=== PATIENT | female | born 1990 | race Caucasian/White ===

== ENCOUNTER → 2016-11-02 17:12 | Emergency (ER) | payer OTHER ==
[~2016-11-02 17:12] MED LIST: Tetan/Diph/Pertus SYR(Tdap)* 0.5 ML SYR(BOOSTRIX) use SYR IM ONE
[2016-11-02 17:24] VITALS: BP 120/79
--- NOTE | 2016-11-02 19:35 | ED ---
Melanie Rivera Auryana, scribed for Sincere Osorio MD on 11/02/16 at 1743 . Upper Extremity Pain - HPI Summary HPI Summary: 26 year old male presents to the ED s/p getting a fishing lure stuck in her left thumb. Patient reports that the pain is a 3/10. Patient is not UTD on tetanus shots - believes 6 years ago but not sure. - History of Current Complaint Chief Complaint: EDGeneral Stated Complaint: FISHING LURE IN HAND Time Seen by Provider: 11/02/16 17:23 Hx Obtained From: Patient Mechanism Of Injury: Blunt Trauma - fishing lure Onset/Duration: Started Minutes Ago - [employer], Still Present Timing: Constant Severity Initially: Mild Severity Currently: Mild Pain Location: Finger - left thumb Aggravating Factor(s): Movement - Allergies/Home Medications Allergies/Adverse Reactions: Allergies Allergy/AdvReac Type Severity Reaction Status Date / Time Amoxicillin Allergy Hives Verified 11/02/16 17:17 PMH/Surg Hx/FS Hx/Imm Hx Endocrine/Hematology History: Denies: Hx Diabetes EENT History: Reports: Hx Seasonal Allergies Infectious Disease History: No Infectious Disease History: Denies: Traveled Outside the [place] in Last 30 Days - Family History Known Family History: Negative: Cardiac Disease, Hypertension, Diabetes - Social History Occupation: Employed Full-time Lives: With Family Alcohol Use: Weekly Hx Substance Use: No Substance Use Type: Reports: None Hx Tobacco Use: No Smoking Status (MU): Never Smoked Tobacco Review of Systems Constitutional: Negative Eyes: Negative ENT: Negative Cardiovascular: Negative Respiratory: Negative Gastrointestinal: Negative Genitourinary: Negative Musculoskeletal: Negative Positive: Other - pain in the left thumb Neurological: Negative Psychological: Normal All Other Systems Reviewed And Are Negative: Yes Physical Exam Triage Information Reviewed: Yes Vital Signs On Initial Exam: Initial Vitals Temp Pulse Resp BP Pulse Ox 98.3 F 72 16 120/79 99 11/02/16 17:13 11/02/16 17:13 11/02/16 17:13 11/02/16 17:13 11/02/16 17:13 Vital Signs Reviewed: Yes Appearance: Positive: Well-Appearing, No Pain Distress, Well-Nourished Skin: Positive: Warm, Skin Color Reflects Adequate Perfusion, Dry, Other - fishing lure in left thumb Head/Face: Positive: Normal Head/Face Inspection Eyes: Positive: Normal ENT: Positive: Normal ENT inspection Neck: Positive: Supple, Nontender Respiratory/Lung Sounds: Positive: Clear to Auscultation, Breath Sounds Present Cardiovascular: Positive: RRR Abdomen Description: Positive: Nontender, Soft Bowel Sounds: Positive: Present Musculoskeletal: Positive: Normal Neurological: Positive: Normal Psychiatric: Positive: Normal, Affect/Mood Appropriate Procedures - Procedure Summary Procedure Summary: LEFT THUMB- area prepped with Betadine ad numbed with 2% lidocaine. Leonora was but off and lure backed out through the hole. Diagnostics - Vital Signs Vital Signs Temp Pulse Resp BP Pulse Ox 11/02/16 17:16 98.3 F 71 16 120/79 99 11/02/16 17:13 98.3 F 72 16 120/79 99 - Laboratory Lab Statement: Any lab studies that have been ordered have been reviewed, and results considered in the medical decision making process. Course/Dx - Diagnoses Provider Diagnoses: Puncture wound of finger of left hand Discharge - Discharge Plan Condition: Stable Disposition: HOME Patient Education Materials: Puncture Wound (ED) Referrals: [facility] [place] [facility]IAN REFERRAL [Outside] The documentation as recorded by the Melanie holcomb Auryana accurately reflects the service I personally performed and the decisions made by nh, Sincere Osorio MD.
== END | disposition home or self-care (01) ==
LOC: ED 17:12
DX: S61.239A Puncture wound without foreign body of unspecified finger without damage to nail, initial encounter (principal); W26.9XXA Contact with unspecified sharp object(s), initial encounter; Y93.89 Activity, other specified; Y92.89 Other specified places as the place of occurrence of the external cause
CPT/HCPCS: 90471; 90715; 99281

== ENCOUNTER 2017-04-25 23:33 | Emergency (ER) | payer OTHER ==
--- NOTE | 2017-04-26 00:50 | ED ---
Back Pain - HPI Summary HPI Summary: 26F presents with back pain for past couple days. She states it is located in the lower part of her back. She states she may have pulled it exercising. She has some pain down legs occasionally. no numbness or tingling. no loss of bowel or bladder. no saddle anaesthesia. has tried ibuprofen which has helped. states she is just here for imaging to make sure she can ski this weekend and has history of osteopenia. She is able to ambulate with normal gait. - History of Current Complaint Chief Complaint: EDBackInjuryPain Stated Complaint: BACK INJURY Time Seen by Provider: 04/26/17 00:49 Pain Intensity: 4 - Allergies/Home Medications Allergies/Adverse Reactions: Allergies Allergy/AdvReac Type Severity Reaction Status Date / Time Amoxicillin Allergy Hives Verified 11/02/16 17:17 PMH/Surg Hx/FS Hx/Imm Hx Endocrine/Hematology History: Denies: Hx Diabetes Cardiovascular History: Denies: Hx Pacemaker/ICD Infectious Disease History: No Infectious Disease History: Denies: Traveled Outside the [place] in Last 30 Days - Family History Known Family History: Negative: Cardiac Disease, Hypertension, Diabetes - Social History Alcohol Use: Weekly Hx Substance Use: No Substance Use Type: Reports: None Hx Tobacco Use: No Smoking Status (MU): Never Smoked Tobacco Review of Systems Negative: Fever Negative: Chest Pain Negative: Shortness Of Breath Positive: Myalgia - back pain All Other Systems Reviewed And Are Negative: Yes Physical Exam Triage Information Reviewed: Yes Vital Signs On Initial Exam: Initial Vitals Temp Pulse Resp BP Pulse Ox 98 F 78 14 133/63 95 04/25/17 23:49 04/25/17 23:49 04/25/17 23:49 04/25/17 23:49 04/25/17 23:49 Vital Signs Reviewed: Yes Appearance: Positive: Well-Appearing Skin: Positive: Warm, Dry Head/Face: Positive: Normal Head/Face Inspection Eyes: Positive: Normal, Conjunctiva Clear Respiratory/Lung Sounds: Positive: Clear to Auscultation, Breath Sounds Present Cardiovascular: Positive: Normal, RRR Musculoskeletal: Positive: Strength/ROM Intact - back, Other - tenderness over side of lower back, neg SLR, good pulses, sensation grossly intact Neurological: Positive: Normal Gait Psychiatric: Positive: Normal Diagnostics - Vital Signs Vital Signs Temp Pulse Resp BP Pulse Ox 04/25/17 23:49 98 F 78 14 133/63 95 - Laboratory Lab Statement: Any lab studies that have been ordered have been reviewed, and results considered in the medical decision making process. - Radiology back Xray Interpretation: No Acute Changes - no fracture, stool in colon Radiology Interpretation Completed By: ED Physician Back Pain Course/Dx - Course Course Of Treatment: 26F presents with back pain for past couple days. She states it is located in the lower part of her back. She states she may have pulled it exercising. She has some pain down legs occasionally. no numbness or tingling. no loss of bowel or bladder. no saddle anaesthesia. has tried ibuprofen which has helped. states she is just here for imaging to make sure she can ski this weekend and has history of osteopenia. She is able to ambulate with normal gait. on exam tenderness on side of lower back, neg SLR, neurovascular intact. read xray as no fracture but is alot of stool. discussed can use an OTC laxative. told to continue ibuprofen and follow up with primary. patient understand and agrees with plan. - Diagnoses Differential Diagnosis/HQI/PQRI: Positive: Herniated Disc, Strain, Sprain Provider Diagnoses: Back pain Discharge - Discharge Plan Condition: Good Disposition: HOME Patient Education Materials: Back Pain (ED) Referrals: Non Staff,Doctor [Primary Care Provider] - Additional Instructions: xray looks normal, appear to have a lot of stool in colon, can try otc laxative such as miralax Use ibuprofen or Tylenol for pain every 6 hours ice/heat area, move as much as possible Follow up with primary within 5 days Return to ED if develop any new or worsening symptoms
[2017-04-26 00:56] VITALS: BP 133/70
--- NOTE | 2017-04-26 10:35 | RAD ---
INDICATION: Low back pain x1 month after injury at the gym COMPARISON: None. TECHNIQUE: 5 views of the lumbar spine were obtained. FINDINGS: The vertebra are in normal alignment. No fracture is seen. Disc spaces appear maintained. IMPRESSION: No evidence of fracture or subluxation.
== END 2017-04-26 00:57 | disposition home or self-care (01) ==
LOC: ED 23:33
DX: M54.9 Dorsalgia, unspecified (principal)
CPT/HCPCS: 72110; 99282

== ENCOUNTER 2018-04-02 11:38 | Emergency (ER) | payer BC, OTHER ==
[2018-04-02 12:20] LABS: ABS Basophils 0 10^3/ul (0-0.2); ABS Eosinophils 0.1 10^3/ul (0-0.6); ABS Lymphocytes 2.3 10^3/ul (1.0-4.8); ABS Monocytes 0.6 10^3/ul (0-0.8); ABS Neutrophils 7.9 10^3/ul (1.5-7.7); ABS Nucleated RBC 0 10^3/ul; Eosinophil % 0.9 %; Hematocrit 39 % (35-47); Hemoglobin 13.5 g/dl (12.0-16.0); Lymphocyte % 20.6 %; Mean Corpuscular HGB Conc 35 g/dl (31-36); Mean Corpuscular Hemoglobin 31 pg (27-31); Mean Corpuscular Volume 89 fL (80-97); Mean Platelet Volume 8.4 fL (7.4-10.4); Nucleated Red Blood Cells % 0; Platelet Count 239 10^3/ul (150-450); Red Blood Count 4.35 10^6/ul (4.00-5.40); Red Cell Distribution Width 13 % (10.5-15); White Blood Count 10.9 10^3/ul (3.5-10.8)
--- NOTE | 2018-04-02 12:34 | ED ---
HPI Cardiac - HPI Summary HPI Summary: This patient is a 27 year old F presenting to [facility] with a chief complaint of tachycardia since 3 weeks ago. Patient reports irregular heartbeat (noticed today) and mild palpitations. Patient denies SOB, dizziness, CP, nausea, diaphoresis, and any other symptoms. She reports that she started a [employer] research study 3 weeks ago that measures her heart rate every week. It has been around 120 bpm for 3 weeks in a row, and today person running the study noticed that her heart was slow, fast, fast, fast, slow, fast, fast, fast. Patient followed up with her PCP who referred her to the [facility]. - History of Current Complaint Chief Complaint: EDDysrhythmPalp Stated Complaint: IRREGULAR HEART RATES Time Seen by Provider: 04/02/18 11:55 Hx Obtained From: Patient Onset/Duration: Started Weeks Ago - 3 weeks ago, Still Present Timing: Constant Pain Intensity: 0 Pain Scale Used: 0-10 Numeric Associated Signs and Symptoms: Positive: Palpitations, Other: - Tachycardia and irregular heartbeat. Denies diaphoresis and any other symptoms.. Negative: Chest Pain, Dizziness, Shortness of Breath, Nausea - Allergy/Home Medications Allergies/Adverse Reactions: Allergies Allergy/AdvReac Type Severity Reaction Status Date / Time amoxicillin Allergy Hives Verified 04/02/18 12:56 Home Medications: Home Medications Lifitegrast [Xiidra] 1 drop BOTH EYES BID 04/02/18 [History Confirmed 04/02/18] PMH/Surg Hx/FS Hx/Imm Hx Endocrine/Hematology History: Denies: Hx Diabetes Cardiovascular History: Denies: Hx Pacemaker/ICD Infectious Disease History: No Infectious Disease History: Denies: Traveled Outside the [place] in Last 30 Days - Family History Known Family History: Positive: Cardiac Disease - Arrythmia Negative: Hypertension, Diabetes - Social History Alcohol Use: Weekly Hx Substance Use: No Substance Use Type: Reports: None Hx Tobacco Use: No Smoking Status (MU): Never Smoked Tobacco Review of Systems Negative: Skin Diaphoresis Positive: Palpitations, Other - Tachycardia and irregular heartbeat. Negative: Chest Pain Negative: Shortness Of Breath Negative: Nausea Neurological: Other - Denies dizziness All Other Systems Reviewed And Are Negative: Yes Physical Exam - Summary Physical Exam Summary: VITAL SIGNS: Reviewed. GENERAL: Patient is a well-developed and nourished FEMALE who is lying comfortable in the stretcher. Patient is not in any acute respiratory distress. HEAD AND FACE: No signs of trauma. No ecchymosis, hematomas or skull depressions. No sinus tenderness. EYES: PERRLA, EOMI x 2, No injected conjunctiva, no nystagmus. EARS: Hearing grossly intact. Ear canals and tympanic membranes are within normal limits. MOUTH: Oropharynx within normal limits. NECK: Supple, trachea is midline, no adenopathy, no JVD, no carotid bruit, no c- spine tenderness, neck with full ROM. CHEST: Symmetric, no tenderness at palpation LUNGS: Clear to auscultation bilaterally. No wheezing or crackles. CVS: Tachycardia and irregular rate and rhythm, S1 and S2 present, no murmurs or gallops appreciated. ABDOMEN: Soft, non-tender. No signs of distention. No rebound no guarding, and no masses palpated. Bowel sounds are normal. EXTREMITIES: FROM in all major joints, no edema, no cyanosis or clubbing. NEURO: Alert and oriented x 3. No acute neurological deficits. Speech is normal and follows commands. SKIN: Dry and warm Triage Information Reviewed: Yes Vital Signs On Initial Exam: Initial Vitals Temp Pulse Resp BP Pulse Ox 98.3 F 59 20 129/87 99 04/02/18 11:40 04/02/18 11:40 04/02/18 11:40 04/02/18 11:40 04/02/18 11:40 Vital Signs Reviewed: Yes Diagnostics - Vital Signs Vital Signs Temp Pulse Resp BP Pulse Ox 04/02/18 11:40 98.3 F 59 20 129/87 99 - Laboratory Result Diagrams: 04/02/18 11:59 04/02/18 11:59 Lab Statement: Any lab studies that have been ordered have been reviewed, and results considered in the medical decision making process. - Radiology Chest X-Ray Radiology Interpretation Completed By: Radiologist Summary of Radiographic Findings: 12:57. No active cardiopulmonary disease is noted. ED Physician has reviewed this imaging report. - CT Chest/Thorax CTA CT Interpretation Completed By: Radiologist Summary of CT Findings: 14:46. No CT of evidence of pulmonary embolism in this otherwise normal CTA of the chest. ED Physician has reviewed this imaging report. - EKG 12:18 Cardiac Rate: NL - 84 BPM EKG Rhythm: Sinus Rhythm ST Segment: Normal Disposition - Course Assessment/Plan: This patient is a 27 year old F presenting to [facility] with a chief complaint of tachycardia since 3 weeks ago. Patient reports irregular heartbeat (noticed today) and mild palpitations. Patient denies SOB, dizziness, CP, nausea, diaphoresis, and any other symptoms. She reports that she started a [employer] research study 3 weeks ago that measures her heart rate every week. It has been around 120 bpm for 3 weeks in a row, and today person running the study noticed that her heart was slow, fast, fast, fast, slow, fast, fast, fast. Patient followed up with her PCP who referred her to the ED. Chest x- ray impression: No active cardiopulmonary disease. Blood work without any significant abnormality except for WBCs of 10.9, d-dimer is 234,and urinalysis negative for UTI. Because of the increased WBC and d-dimer I decided to rule out PE. Chest CT impression: Negative for PE. I discussed the case with Palma Chan MD from cardiology and he recommends atenolol 12.5 grams once a day. He also recommends for the patient to be referred to cardiology for further workup and management. I discussed all the findings and test results with the patient. Patient was instructed to return to the emergency room immediately if any of the symptoms return or worsens. Plan of care was discussed with the patient and understands and agrees. All questions were answered at patient satisfaction. There were no further complaints or concerns. Lung exam before discharge: CTA B/L. Good air exchange. No wheezing or crackles heard. CVS: S1 and S2 present. No murmurs appreciated. Patient is alert and oriented x 3. Patient is hemodynamically stable. Patient will be discharged home with follow up PCP in the next 2-3 days - Diagnoses Provider Diagnoses: Inappropriate sinus tachycardia, Palpitations - Physician Notifications Discussed Care Of Patient With: Palma Chan - Retail Merchandising Manager Time Discussed With Above Provider: 15:19 - Give patient Atenolol 12.5 mg/day Instructed by Provider To: Have Pt Call For Appt. Discharge - Sign-Out/Discharge Documenting (check all that apply): Patient Departure - Discharge Plan Condition: Stable Disposition: HOME Prescriptions: Atenolol TAB* [Tenormin TAB* 25 MG] 12.5 mg PO DAILY #20 tab Patient Education Materials: Heart Palpitations (ED), Tachycardia (ED) Referrals: [facility] [Outside] - 3 Days Additional Instructions: RETURN THE ED FOR ANY WORSENING OR NEW SYMPTOMS. FOLLOW UP WITH YOUR PRIMARY CARE PROVIDER OR THE [facility] WITHIN 3 DAYS. - Billing Disposition and Condition Condition: STABLE Disposition: Home - Attestation Statements Document Initiated by Mahoganyibe: Yes Documenting Scribe: Ceferino Whipple Provider For Whom Mahoganyibe is Documenting (Include Credential): Jacques Ortega MD Scribe Attestation: Ceferino Rivera, scribed for Jacques Ortega MD on 04/02/18 at 2118. Scribe Documentation Reviewed: Yes Provider Attestation: The documentation as recorded by the Ceferino holcomb accurately reflects the service I personally performed and the decisions made by me, Jacques Ortega MD Status of Scribe Document: Viewed
[2018-04-02 12:42] LABS: EGFR Non-African American 104.8 (>60)
[2018-04-02 13:44] LABS: Urine Appearance Cloudy; Urine Blood 1+ (Negative); Urine Color Yellow; Urine Ketones Negative (Negative); Urine Protein Negative (Negative); Urine Red Blood Cell 1+(3-5/hpf) (Absent); Urine Specific Gravity 1.012 (1.010-1.030); Urine Urobilinogen Negative (Negative); Urine White Blood Cell Absent (Absent)
[2018-04-02] MEDS ORDERED: Iohexol 350* (CONTRAST) 500 ML MDV IV ONE ×2 (14:08→14:10)
[2018-04-02] MEDS ORDERED: Atenolol TAB* 25 MG PO ONE (15:22)
[2018-04-02 15:50] VITALS: BP 125/81
== END 2018-04-02 15:49 | disposition home or self-care (01) ==
LOC: ED 11:38
DX: R00.0 Tachycardia, unspecified (principal); R00.2 Palpitations; Z88.0 Allergy status to penicillin
CPT/HCPCS: 36415; 71046; 71275; 80053; 81003; 81015; 82550; 83605; 83735; 84443; 84484; 85025; 85379; 86703; 87086; 93005; 99283; Q9967